=== PATIENT | female | born 1985 | race Caucasian/White ===

== ENCOUNTER 2019-12-12 06:02 | Inpatient (IN) | payer OTHER ==
[2019-12-12] MEDS ORDERED: CARBOPROST TROMETHAMINE 250 MCG/ML 1 ML AMP IM PRN (06:12)
[2019-12-12] MEDS ORDERED: OXYTOCIN 10 UNIT/ML 1 ML VIAL IM PRN (06:12)
[2019-12-12] MEDS ORDERED: TERBUTALINE 1 MG/ML VIAL SQ PRN (06:12)
[2019-12-12] MEDS ORDERED: METHYLERGONOVINE 0.2 MG/ML 1 ML AMP IM PRN (06:12)
[2019-12-12] MEDS ORDERED: LIDOCAINE 0.5% (PF) 5 MG/ML (50 ML SDV) SQ PRN (06:12)
[2019-12-12] MEDS ORDERED: AMPICILLIN 2,000 MG in SODIUM CHLORIDE 0.9% 100 ML IVPB STA (06:12)
[2019-12-12] MEDS ORDERED: OXYTOCIN 30 UNITS/500 ML NS 30 UNIT in SALINE 1 500ML.BAG IV SCH (06:15)
[2019-12-12] MEDS: LACTATED RINGERS 1,000 ML IV SCH ×3 (06:27→17:40)
[2019-12-12 06:47] LABS: Basophils % (A) 0 %; Eosinophils # (A) 0.2 k/uL (0-0.7); Eosinophils % (A) 3 %; HCT 33.9 % (34.0-46.0); HGB 11.6 gm/dL (11.4-16.0); Lymphocytes # (A) 1.7 k/uL (1.0-4.8); Lymphocytes % (A) 18 %; MCH 32.3 pg (25.0-35.0); MCHC 34.2 g/dL (31.0-37.0); MCV 94.5 fL (80.0-100.0); Mean Platelet Volume 10.8; Monocytes # (A) 0.4 k/uL (0-1.0); Monocytes % (A) 4 %; Neutrophils # (A) 6.8 k/uL (1.3-7.7); Neutrophils % (A) 74 %; Platelet Count 234 k/uL (150-450); RBC 3.59 m/uL (3.80-5.40); RDW 14.1 % (11.5-15.5); WBC 9.2 k/uL (3.8-10.6)
[2019-12-12] MEDS ORDERED: BUTORPHANOL 1 MG/ML 1 ML VIAL IV PRN (08:41)
[2019-12-12 09:13] LABS: ALT 9 U/L (4-34); AST 15 U/L (14-36); African American GFR (CKD) >90 (>60 ml/min/1.73 sqM); Blood Urea Nitrogen 9 mg/dL (7-17); LDH 344 U/L (313-618); Non-African American GFR(CKD) >90 (>60 ml/min/1.73 sqM); Uric Acid 5.5 mg/dL (3.7-7.4)
[2019-12-12 10:06] LABS: Amorphous Sediment,Urine Rare /hpf; Appearance,Urine Turbid (Clear); Bacteria,Urine Occasional /hpf; Bilirubin,Urine Negative (Negative); Blood,Urine Large (Negative); Color,Urine Yellow; Glucose,Urine (UA) Negative (Negative); Ketones,Urine Negative (Negative); Leukocyte Esterase,Urine Negative (Negative); Mucus,Urine Rare /hpf; Nitrite,Urine Negative (Negative); PH, Urine 6.5 (5.0-8.0); Protein,Urine 2+ (Negative); RBC,Urine >182 /hpf (0-5); Specific Gravity,Urine 1.014 (1.001-1.035); Squamous Epithelial Cell,Urine 21 /hpf (0-4); Urobilinogen,Urine <2.0 mg/dL (<2.0); WBC,Urine 14 /hpf (0-5)
[2019-12-12 10:10] LABS: Protein/Creatinine Ratio,Urine 2.098
[2019-12-12] MEDS: AMPICILLIN 1,000 MG in SODIUM CHLORIDE 0.9% 50 ML IVPB SCH ×3 (11:14→20:30)
[2019-12-12] MEDS ORDERED: fentaNYL (PF) 50 MCG/ML 5 ML AMP ONE (13:20)
[2019-12-12] MEDS ORDERED: ROPIVACAINE 5MG/ML 20ML VIAL ONE (13:20)
[2019-12-12] MEDS ORDERED: SODIUM CHLORIDE 0.9% 100 ML BAG ONE (13:20)
[2019-12-12] MEDS ORDERED: CITRIC ACID-SODIUM CITRATE 15 ML CUP PO ONE (16:30)
[2019-12-12] MEDS ORDERED: ONDANSETRON 4 MG/2 ML VIAL ONE (16:41)
[2019-12-12] MEDS ORDERED: OXYTOCIN 10 UNIT/ML 1 ML VIAL ONE (16:41)
[2019-12-12] MEDS ORDERED: DEXAMETHASONE SOD PHOS (MDV) 100 MG/10 ML VIAL ONE (16:41)
[2019-12-12] MEDS ORDERED: METOCLOPRAMIDE 5 MG/ML 2 ML VIAL IVP PRN (17:40)
[2019-12-12] MEDS ORDERED: diphenhydrAMINE 50 MG CAP PO PRN (17:40)
[2019-12-12] MEDS ORDERED: ZOLPIDEM 5 MG TAB PO PRN (17:40)
[2019-12-12] MEDS ORDERED: diphenhydrAMINE 25 MG CAP PO PRN (17:40)
[2019-12-12] MEDS ORDERED: ACETAMINOPHEN TAB 325 MG TAB PO PRN (17:40)
[2019-12-12] MEDS ORDERED: diphenhydrAMINE 50 MG/ML 1 ML VIAL IVP PRN ×3 (17:40→18:02)
[2019-12-12] MEDS ORDERED: SIMETHICONE 80 MG CHEWABLE PO PRN (17:40)
[2019-12-12] MEDS ORDERED: ONDANSETRON 4 MG/2 ML VIAL IVP PRN (17:40)
[2019-12-12] MEDS ORDERED: ACETAMINOPHEN IV (For NPO) 1,000 MG in EMPTY BAG 1 BAG IVPB ONE (17:40)
[2019-12-12] MEDS ORDERED: MEASLES-MUMPS-RUBELLA VACC/PF 12,500 UNIT/0.5 ML VIAL SQ ONE (17:40)
[2019-12-12] MEDS ORDERED: NALOXONE 0.4 MG/ML 1 ML VIAL IV PRN ×2 (17:40→18:02)
[2019-12-12] MEDS ORDERED: OXYTOCIN 20 UNITS/1000 ML NS 1,000 ML IV SCH (17:45)
--- NOTE | 2019-12-12 17:48 | P.OP ---
Date of Procedure: 12/12/19 Preoperative Diagnosis: IUP at 39 and 1/sevenths weeks, suspected LGA, gestational htn, arrest of first stage of labor, failed induction Postoperative Diagnosis: Same Procedure(s) Performed: Primary low transverse section Anesthesia: epidural Surgeon: Maryuri Koo Director Of Security #1: Zane Pierce Estimated Blood Loss (ml): 600 IV fluids (ml): 800 Urine output (ml): 100 Pathology: none sent Condition: stable Disposition: observation Indications for Procedure: This pleasant 34-year-old 2 para 0010 at 39 and one sevenths weeks presented to labor and delivery for induction of labor secondary to suspected LGA, gestational hypertension. Patient was admitted to labor and delivery Pitocin induction of labor was begun. Patient was noted to be 1/-2 station. Amniotomy was performed and clear fluid was obtained. Patient became uncomfortable requested epidural placement minimal change if none was noted but epidural was placed as she received no relief of her discomfort from Stadol 1. Patient made no further change and was offered primary approximate 4 PM. Patient was counseled on risks of including but not limited to infection, bleeding, damage to bladder, bowel, injury patient stated understanding and wished to proceed. Operative Findings: Normal uterus tubes and ovaries were appreciated. Liveborn male infant born at 1704, weight of 8 lbs. 1 oz. with Apgars of 9 and 9 at one and 5 minutes respectively. Infant was noted to be asynclitic, OT presentation, loose nuchal cord was delivered through. Description of Procedure: Patient was taken back to the operating suite where epidural anesthesia was found to be adequate. She was prepped and draped in normal sterile fashion in dorsal supine position. A Pfannenstiel skin incision was made with the scalpel and carried through the underlying layer of fascia. Fascia was then incised in the midline the incision was extended laterally. The superior aspect of the fascial incision was then grasped with Beronica clamps, elevated and underlying rectus muscles dissected off sharply. Attention was then turned to the patient's inferior aspect of the fascial incision which was grasped beronica clamps, elevated and underlying rectus muscles dissected off sharply once again. The rectus muscles were in the midline and the peritoneum was identified and entered. The bladder blade was then inserted and into the pelvis. The vesicouterine peritoneum was identified and the bladder flap was then created using sharp and blunt dissection. The bladder blade was then reinserted. Hysterotomy incision was made with the scalpel and was encountered in a vertex presentation this was then delivered atraumatically and the umbilical cords doubly clamped and cut and handed off to awaiting RN. The placenta was then delivered manually the uterus was delivered from the abdomen and cleared of all clots and debris. The hysterotomy incision was closed with 0 Vicryl in a running locked fashion. A second layer of suture was used to obtain hemostasis. Small amount of bleeding was noted on the left lateral incision a [id number] suture was used to obtain hemostasis. Hemostasis was appreciated. The pelvis was then copiously irrigated and the uterus was returned to the abdomen the gutters were cleared of all clots and debris. The hysterotomy incision was inspected and hemostasis was appreciated once again. The rectus muscles were inspected and felt to be hemostatic the fascia was then closed with 0 Vicryl in a running fashion from one lateral edge the other lateral edge. The subcutaneous tissue was then irrigated copiously hemostasis was appreciated and it was closed with 3-0 Vicryl in a running fashion. The skin was then closed with 4-0 Vicryl in a subarticular fashion. Steri-Strips and sterile dressings was applied. Next All counts are correct 2, patient and tolerated procedure well
--- NOTE | 2019-12-12 17:48 | P.HPOB ---
History of Present Illness H&P Date: 12/12/19 Chief Complaint: IUP at 39 and 1/sevenths weeks, suspected LGA This is a pleasant 34-year-old 2 para 0010 at 39 and one sevenths weeks with an estimated due date of 12/17. Patient has been receiving routine care since the first trimester. Patient is known advanced maternal age, group beta strep is noted to be positive, rubella status nonimmune. Patient's care has been essentially uncomplicated. Patient was noted to be measuring size greater than dates throughout the and on last ultrasound yesterday infant measuring 03/22, 90th percentile. In addition. Patient's blood pressure yesterday 128/90, with 2+ proteinuria. Patient denies any signs or symptoms of preeclampsia. Patient is noting good movement this morning. She denies contractions, she denies loss of fluid or vaginal bleeding. On bloodwork this patient has a blood type of A+, rubella at stated above is nonimmune, RPR is nonreactive, hepatitis B surface antigen is negative, HIV negative, group beta strep was positive on 11/20. Review of Systems Constitutional: Denies chills, Denies fatigue, Denies fever Ears, nose, mouth and throat: Denies headache Cardiovascular: Reports leg edema Respiratory: Denies dyspnea Gastrointestinal: Denies constipation, Denies diarrhea, Denies nausea, Denies vomiting Genitourinary: Reports Past Medical History Past Medical History: No Reported History Additional Past Medical History / Comment(s): Kidney and bladder infections - 1999 History of Any Multi-Drug Resistant Organisms: None Reported Additional Past Surgical History / Comment(s): [place] tooth extraction Past Anesthesia/Blood Transfusion Reactions: No Reported Reaction Past Psychological History: Depression Smoking Status: Former smoker Past Alcohol Use History: None Reported Past Drug Use History: None Reported - Past Family History Mother Family Medical History: Hypertension Medications and Allergies Home Medications Medication Instructions Recorded Confirmed Type Pnv No.95/Ferrous Fum/Folic AC 1 each PO DAILY 12/12/19 12/12/19 History [ Multivitamin Tablet] Allergies Allergy/AdvReac Type Severity Reaction Status Date / Time No Known Allergies Allergy Verified 12/12/19 06:11 Exam Osteopathic Statement: *. No significant issues noted on an osteopathic structural exam other than those noted in the History and Physical/Consult. Vital Signs Temp Pulse Resp BP 12/12/19 06:18 97.3 F L 79 16 163/88 Intake and Output 12/11/19 12/12/19 12/12/19 22:59 06:59 14:59 Other: Weight 117.934 kg Targeted physical exam is performed on this date in general this a well- nourished well-developed female in no acute distress, breathing is noted to be nonlabored, heart has regular rate and rhythm, abdomen is gravid and large for gestational age, heart tones returned be category 1 and she is jairo irregularly, on cervical exam she is 1/70/-2 amniotomy is performed and clear fluid was obtained. Results Result Diagrams: 12/12/19 06:25 Abnormal Lab Results - Last 24 Hours (Table) 12/12/19 Range/Units 06:25 RBC 3.59 L (3.80-5.40) m/uL Hct 33.9 L (34.0-46.0) % Assessment and Plan (1) Term Current Visit: Yes Status: Acute Code(s): Z34.90 - ENCNTR FOR SUPRVSN OF NORMAL , UNSP, UNSP TRIMESTER SNOMED Code(s): 56610542 (2) LGA (large for gestational age) fetus Current Visit: Yes Status: Acute Code(s): SOG1543 - SNOMED Code(s): 202139516 (3) Gestational HTN Current Visit: Yes Status: Acute Code(s): O13.9 - GESTATIONAL HTN W/O SIGNIFICANT PROTEINURIA, UNSP TRIMESTER SNOMED Code(s): 916000470 Plan: Patient is admitted to labor and delivery for induction of labor with Pitocin. IV Pitocin was started per hospital protocol. Options for analgesia are discussed with patient including Stadol/epidural. Patient will let us know which she desires. In addition pre-William labs will be drawn this morning given her blood pressure 147/88.
[2019-12-12] MEDS ORDERED: IBUPROFEN IV 800 MG in SODIUM CHLORIDE 0.9% 250 ML IV ONE (18:00)
[2019-12-12] MEDS ORDERED: MORPHINE SULFATE 2 MG/ML SYRINGE IVP PRN (18:02)
[2019-12-12] MEDS: SENNOSIDES-DOCUSATE SODIUM 1 EACH TAB PO SCH (20:27)
[2019-12-12] MEDS ORDERED: methylPREDNISolone SOD SUCCI 125 MG/2 ML VIAL ONE (23:12)
[2019-12-12] MEDS ORDERED: ALBUTEROL NEBULIZED 2.5 MG/3 ML INHALATION ONE (23:12)
[2019-12-13] MEDS ORDERED: IBUPROFEN IV 800 MG/8 ML VIAL IV ONE (01:24)
[2019-12-13] MEDS ORDERED: ALBUTEROL NEBULIZED 2.5 MG/3 ML INHALATION ONE (03:25)
--- NOTE | 2019-12-13 07:09 | P.PN ---
Progress Note - Text Date: 12/13/2019 Time: 700 The patient is status post section Vital signs stable VAS:0-10 Patient has no complaints of pain. The patient incurred some minimal itching yesterday, this itching is now subsiding. Pain meds to be managed by service.
[2019-12-13 07:29] LABS: Basophils % (A) 0 %; Eosinophils % (A) 0 %; HCT 33.1 % (34.0-46.0); HGB 10.7 gm/dL (11.4-16.0); Lymphocytes # (A) 2.1 k/uL (1.0-4.8); Lymphocytes % (A) 14 %; MCH 30.9 pg (25.0-35.0); MCHC 32.3 g/dL (31.0-37.0); MCV 95.9 fL (80.0-100.0); Mean Platelet Volume 9.2; Monocytes # (A) 0.5 k/uL (0-1.0); Monocytes % (A) 4 %; Neutrophils # (A) 11.9 k/uL (1.3-7.7); Neutrophils % (A) 81 %; Platelet Count 277 k/uL (150-450); RBC 3.45 m/uL (3.80-5.40); RDW 13.9 % (11.5-15.5); WBC 14.8 k/uL (3.8-10.6)
[2019-12-13] MEDS: IBUPROFEN 600 MG TAB PO PRN ×3 (08:33→23:46)
[2019-12-13] MEDS: SENNOSIDES-DOCUSATE SODIUM 1 EACH TAB PO SCH ×2 (08:33→19:59)
[2019-12-13] MEDS ORDERED: PRENATAL VIT-IRON-FOLIC ACID 1 EACH CAP PO SCH (09:00)
[2019-12-13] MEDS: HYDROcodone/APAP 5-325MG 1 EACH TAB PO PRN ×2 (12:22→19:59)
--- NOTE | 2019-12-13 12:33 | P.PNOBGPC ---
Subjective - Subjective Principal diagnosis: POD 1 LTCS Interval history: Patient is doing well postoperatively. On this postop day #1 she is ambulating and voiding without difficulty. She is tolerating a regular diet without nausea or vomiting. She is stating her pain is well-controlled. Her lochia is noted to be minimal. Patient reports: Reports appetite normal, Reports voiding normally, Reports pain well controlled, Reports ambulating normally : doing well Objective - Vital Signs Latest vital signs: Vital Signs Temp Pulse Resp BP Pulse Ox 12/13/19 08:00 98.3 F 85 16 141/75 98 12/12/19 22:38 98.1 F 78 18 143/76 12/12/19 22:24 97.8 F 69 18 135/75 12/12/19 22:22 78 16 12/12/19 22:21 100 12/12/19 20:28 96.8 F L 78 16 137/69 12/12/19 19:46 120/88 12/12/19 19:44 98.1 F 87 16 135/80 12/12/19 18:40 72 14 147/87 100 12/12/19 18:25 75 16 141/62 100 12/12/19 18:10 75 16 156/98 100 12/12/19 18:02 14 100 12/12/19 17:55 69 16 136/106 100 12/12/19 17:40 97.6 F 73 16 137/78 98 Intake and Output 12/12/19 12/13/19 12/13/19 22:59 06:59 14:59 Output Total 350 300 Balance -350 -300 Output: Urine 350 300 Uretheral (Joe) 300 Other: # Voids 1 1 - Exam Extremities: Present: normal, edema Abdomen: Present: normal appearance, soft Incision: Present: normal, dry Uterus: Present: normal, firm - Labs Labs: Abnormal Lab Results - Last 24 Hours (Table) 12/13/19 Range/Units 06:59 WBC 14.8 H (3.8-10.6) k/uL RBC 3.45 L (3.80-5.40) m/uL Hgb 10.7 L (11.4-16.0) gm/dL Hct 33.1 L (34.0-46.0) % Neutrophils # 11.9 H (1.3-7.7) k/uL Assessment and Plan (1) Term Current Visit: Yes Status: Acute Code(s): Z34.90 - ENCNTR FOR SUPRVSN OF NORMAL , UNSP, UNSP TRIMESTER SNOMED Code(s): 13289478 (2) LGA (large for gestational age) fetus Current Visit: Yes Status: Acute Code(s): SGL9057 - SNOMED Code(s): 204026628 (3) Gestational HTN Current Visit: Yes Status: Acute Code(s): O13.9 - GESTATIONAL HTN W/O SIGNIFICANT PROTEINURIA, UNSP TRIMESTER SNOMED Code(s): 429160778 (4) S/P section Current Visit: Yes Status: Acute Code(s): Z98.891 - HISTORY OF UTERINE SCAR FROM PREVIOUS SURGERY SNOMED Code(s): 293601944 Plan: Patient is doing well postoperatively, will plan to continue routine care and anticipate discharge home tomorrow.
[2019-12-13] MEDS: LACTATED RINGERS 1,000 ML IV SCH (12:53)
[2019-12-14] MEDS: HYDROcodone/APAP 5-325MG 1 EACH TAB PO PRN (04:01)
[2019-12-14] MEDS: SENNOSIDES-DOCUSATE SODIUM 1 EACH TAB PO SCH (07:41)
[2019-12-14] MEDS: IBUPROFEN 600 MG TAB PO PRN (07:42)
[2019-12-14 08:03] VITALS: BP 132/73; PULSE 82; RESP 16; TEMP 97.8
--- NOTE | 2019-12-14 09:35 | P.DS ---
Providers Date of admission: 12/12/19 06:02 Expected date of discharge: 12/14/19 Attending physician: Maryuri Koo Primary care physician: Stated None - Discharge Diagnosis(es) (1) Term Current Visit: Yes Status: Acute (2) LGA (large for gestational age) fetus Current Visit: Yes Status: Acute (3) Gestational HTN Current Visit: Yes Status: Acute (4) S/P section Current Visit: Yes Status: Acute Hospital Course: This is a 34-year-old 2 para 0010 that presented to labor and delivery at 39 and one sevenths weeks for induction of labor secondary to suspected LGA and gestational hypertension. Patient had been receiving routine care which has been essentially uncomplicated. Patient has been measuring size gre ater than dates throughout most of the . Ultrasound was preformed and was noted to be greater than the 90th percentile 8 lbs. 15 oz. Patient was admitted to labor and delivery and Pitocin induction of labor was begun. Patient underwent amniotomy and clear fluid was obtained. Patient became uncomfortable and requested epidural placement. Epidural was placed by the anesthesia Department without difficulty. Patient made no further cervical change throughout the afternoon and early evening. Therefore patient was offered primary secondary to arrest of dilation, failed induction. Patient stated understanding and wished to proceed with primary . C- section was performed without difficulty for further details please see the operative report. Patient's postoperative course has been essentially uneventful. On this postop day #2 she is ambulating and voiding without difficulty. She is tolerating a regular diet without nausea or vomiting. She states her pain is well-controlled. She is breast-feeding along with supplementing with a. Patient states she is ready for discharge home. Patient Condition at Discharge: Good Plan - Discharge Summary New Discharge Prescriptions: No Action Pnv No.95/Ferrous Fum/Folic AC [ Multivitamin Tablet] 1 each PO DAILY Discharge Medication List Pnv No.95/Ferrous Fum/Folic AC [ Multivitamin Tablet] 1 each PO DAILY 12/12/19 [History] Follow up Appointment(s)/Referral(s): Maryuri Koo DO [Doctor of Osteopathic Medicine] - 2 Weeks Patient Instructions/Handouts: (DC), (GEN) Discharge Disposition: HOME SELF-CARE
== END 2019-12-14 10:40 | disposition home or self-care (01) | DRG 788 ==
LOC: 4FBP 06:02
PROVIDERS: ADMIT Obstetrics & Gynecology Obstetrics; ATTEND Obstetrics & Gynecology Obstetrics
PROC: 00HU33Z Insertion of Infusion Device into Spinal Canal, Percutaneous Approach (ICD-10-PCS; principal; 2019-12-12 17:04)
PROC: 10907ZC Drainage of Amniotic Fluid, Therapeutic from Products of Conception, Via Natural or Artificial Opening (ICD-10-PCS; principal; 2019-12-12 17:04)
PROC: 3E0R3BZ Introduction of Anesthetic Agent into Spinal Canal, Percutaneous Approach (ICD-10-PCS; principal; 2019-12-12 17:04)
PROC: 3E033VJ Introduction of Other Hormone into Peripheral Vein, Percutaneous Approach (ICD-10-PCS; principal; 2019-12-12 17:04)
PROC: 10D00Z1 Extraction of Products of Conception, Low, Open Approach (ICD-10-PCS; principal; 2019-12-12 17:04)
DX: O36.63X0 Maternal care for excessive fetal growth, third trimester, not applicable or unspecified (principal); O13.4 Gestational [pregnancy-induced] hypertension without significant proteinuria, complicating childbirth; O61.9 Failed induction of labor, unspecified; O62.0 Primary inadequate contractions; O69.81X0 Labor and delivery complicated by cord around neck, without compression, not applicable or unspecified; O99.824 Streptococcus B carrier state complicating childbirth; O99.62 Diseases of the digestive system complicating childbirth; K21.9 Gastro-esophageal reflux disease without esophagitis; Z37.0 Single live birth; Z3A.39 39 weeks gestation of pregnancy; Z87.891 Personal history of nicotine dependence; Z86.59 Personal history of other mental and behavioral disorders; Z82.49 Family history of ischemic heart disease and other diseases of the circulatory system
CPT/HCPCS: 81001; 82565; 82570; 83615; 84156; 84450; 84460; 84520; 84550; 85025; 86850; 86900; 86901; 90471; 90707